=== PATIENT | male | born 1995 | race Caucasian/White ===

== ENCOUNTER 2018-03-17 17:00 | Emergency (ER) | END 2018-03-17 19:37 | disposition home or self-care (01) ==

== ENCOUNTER 2018-09-01 12:58 | Emergency (ER) | payer SELFPAY ==
[~2018-09-01] VITALS: Wt 125.8 kg
[~2018-09-01 12:58] MED LIST: HYDR-4011 PO; IBUP-1542 PO
[2018-09-01 13:01] VITALS: BP 135/77; PULSE 69; RESP 18
[2018-09-01] MEDS ORDERED: KETOROLAC 30 MG INJ IM STA (14:15)
--- NOTE | 2018-09-01 14:16 | ERD ---
ER Documentation Chief Complaint Chief Complaint back pain HPI 23-year-old male, previously healthy, presents the emergency department, complaining of 2 weeks with progressive lower back pain. The patient denies history of trauma, but reports lifting heavy objects at work. The pain is dull, constant, 6/10, worse in bilateral rotation and flexion. He denies distal weakness, numbness or tingling, no incontinence, no rashes, no urinary symptoms, no fever or chills. ROS All systems reviewed and are negative except as per history of present illness. Medications Home Meds Active Scripts Hydrocodone/Acetaminophen ([place] 5-325 Tablet) 1 Each Tablet, 1 TAB PO QHS PRN for PAIN, #7 TAB Prov:CHARLOTTE BRODERICK MD 09/01/18 Baclofen* (Baclofen*) 10 Mg Tablet, 10 MG PO QHS PRN for MUSCLE SPASMS, #10 TAB Prov:CHARLOTTE BRODERICK MD 09/01/18 Ibuprofen* (Motrin*) 600 Mg Tab, 600 MG PO Q8, #20 TAB Prov:CHARLOTTE BRODERICK MD 09/01/18 Hydrocodone/Acetaminophen ([place] 5-325 Tablet) 1 Each Tablet, 1 TAB PO Q6H PRN for PAIN, #10 TAB Prov:RC WINSTON DO 03/17/18 Ibuprofen* (Ibuprofen*) 600 Mg Tablet, 600 MG PO Q6H PRN for PAIN, #30 TAB Prov:RC WINSTON DO 03/17/18 Allergies Allergies: Coded Allergies: No Known Allergy (Unverified , 03/17/18) PMhx/Soc Medical and Surgical Hx: pt denies Medical Hx, pt denies Surgical Hx Hx Alcohol Use: Yes (SOCIALLY) Hx Tobacco Use: Yes FmHx Family History: diabetes; No coronary disease Physical Exam Vitals Vital Signs Date Temp Pulse Resp B/P (MAP) Pulse Ox O2 O2 Flow FiO2 Time Delivery Rate 09/01/18 97.2 69 18 135/77 99 13:01 (96) Physical Exam Patient is in no acute distress, vital signs stable. Alert and fully oriented. EYES: PERRLA, EOMI, Sclera and conjunctiva appear normal. EARS: Canals clear, tympanic membranes WNL THROAT: Normal oropharynx. NECK: Supple, No lymphadenopathy. Full ROM without pain or tenderness. HEART: RRR, no rubs, murmurs, clicks or gallops. LUNGS: Clear to auscultation. ABDOMEN: Soft, non-tender without masses or hepatosplenomegaly. EXTREMITIES: No edema bilaterally. BACK: Normal inspection, no bruises, no rashes, no deformity, decreased range of motion for lateral rotation and flexion. No vertebral tenderness, bilateral lower muscle spasm. NEURO: Cranial nerves grossly intact, no motor or sensory deficit Results 24 hrs Current Medications Medications Dose Sig/Louis Start Time Status Last (Trade) Ordered Route PRN Stop Time Admin Dose Reason Admin Ketorolac 30 mg ONCE STAT 09/01/18 DC 09/01/18 Tromethamine IM 14:15 09/01/18 14:23 (Toradol) 14:20 Procedures/MDM At the time of discharge, patient nontoxic, ambulating, vital signs stable, no gross neurologic deficit. differential diagnosis include but not limited to: lumbar sprain/strain, sciatica, herniated disk, UTI less likely pyelo, kidney stone. Neurovascular exam grossly intact. no clinical findings suggestive of acute infectious process, no acute deformity, no edema, no rashes. Physical examination and clinical presentation consistent most likely with acute on chronic back pain with sciatica. During the ED course the patient received treatment with Toradol IM presenting overall improvement of the symptoms. Results and clinical impression discussed with the patient who agrees with management. The patient is stable to be treated outpatient and will be di scharged home with recommendations and close monitoring The patient was informed that the evaluation in the emergency department has been done to rule out an acute emergency, therefore, chronic conditions like malignancy or autoimmune diseases have not been evaluated; therefore, the patient was instructed to follow up with the primary care provider in the next 48h. If symptoms persist, worsen or new symptoms develop, then patient should return to the ED immediately. Instructions explained and given to patient with acknowledgment and demonstrated understanding. Disclaimer: Inadvertent spelling and grammatical errors are likely due to EHR/dictation software use and do not reflect on the overall quality of patient care. Also, please note that the electronic time recorded on this note does not necessarily reflect the actual time of the patient encounter. Departure Diagnosis: Primary Impression: Acute lumbar myofascial strain Condition: Stable Additional Instructions: Muchas nadiya por [facility] para aleger servicio. Esperamos que en alegre visita a la bridget de emergencia alegre problema medico haya sido solucionado y que se sienta mucho mejor. Para estar seguros que alegre mejoria sigue en proceso, le pedimos el favor de hacer татьяна piyush de seguimiento medico con alegre doctor primario en los proximos 2-4 morris. Lleve con usted estos documentos y las medicinas recetadas. Si toby sintomas empeoran, NO SE ESPERE, por favor regrese a bridget de emergencia INMEDIATAMENTE. En akash que usted no tenga un mdico de atencin primaria: Llame al mdico o clnica comunitaria de referencia que aparece abajo aquiles las horas de consultorio para hacer татьяна piyush para que le vean. CLINICAS: [facility] [id number] [facility] [id number] [facility] [phone] [facility] [phone] [facility] [phone] [address] [facility] [phone] CHARLOTTE LAO MD September 01, 2018 14:16
[2018-09-01] MEDS ORDERED: HYDR-4011 PO (14:40)
[2018-09-01] MEDS ORDERED: BACL10TA PO (14:40)
[2018-09-01] MEDS ORDERED: IBUP-1542 PO (14:40)
== END 2018-09-01 15:26 | disposition home or self-care (01) ==
LOC: FTE 12:58
DX: S39.012A Strain of muscle, fascia and tendon of lower back, initial encounter (principal); X50.0XXA Overexertion from strenuous movement or load, initial encounter; Y92.89 Other specified places as the place of occurrence of the external cause; Z87.891 Personal history of nicotine dependence
CPT/HCPCS: 96372; 99284; J1885